=== PATIENT | female | born 1965 | race Asian ===

== ENCOUNTER 2017-11-12 09:26 | Emergency (ER) | payer OTHER ==
[~2017-11-12] VITALS: Ht 154.9 cm; Wt 90.3 kg
[2017-11-12 09:36] VITALS: BP 125/78; TEMP 97.8
[2017-11-12 10:21] LABS: PLATELET COUNT 261 K/uL (152-353)
[2017-11-12 10:27] LABS: POTASSIUM 3.5 mmol/L (3.6-5.2)
== END 2017-11-12 11:30 | disposition home or self-care (01) ==
LOC: ED 09:26
DX: N39.0 Urinary tract infection, site not specified (principal)
CPT/HCPCS: 36415; 80053; 81000; 85027; 87086; 87088; 96372; 99283; J1885

== ENCOUNTER 2017-12-04 06:34 | Emergency (ER) | payer OTHER ==
[~2017-12-04] VITALS: Ht 154.9 cm; Wt 90.3 kg
[2017-12-04 06:40] VITALS: TEMP 98
[2017-12-04] MEDS ORDERED: AMBIEN5 MG PO (06:59)
[2017-12-04] MEDS ORDERED: XANAX2 MG PO (06:59)
[2017-12-04] MEDS ORDERED: DULO30CA PO (07:00)
[2017-12-04] MEDS ORDERED: PERCOCET1 TA3 PO (07:00)
[2017-12-04 07:20] VITALS: BP 116/73
== END 2017-12-04 07:28 | disposition home or self-care (01) ==
LOC: ED 06:34
DX: G43.909 Migraine, unspecified, not intractable, without status migrainosus (principal)
CPT/HCPCS: 96372; 99283; J1020; J1885

== ENCOUNTER 2017-12-08 07:47 | Outpatient (CLI) | payer OTHER ==
[~2017-12-08 07:47] MED LIST: AMBIEN5 MG PO; DULO30CA PO; PERCOCET1 TA3 PO; XANAX2 MG PO
== END 2017-12-08 21:50 | disposition home or self-care (01) ==
LOC: RAD 07:47
DX: F32.9 Major depressive disorder, single episode, unspecified (principal); F31.9 Bipolar disorder, unspecified; M77.9 Enthesopathy, unspecified; M51.36 Other intervertebral disc degeneration, lumbar region; Z02.71 Encounter for disability determination

== ENCOUNTER 2018-02-17 13:49 | Outpatient (CLI) | payer OTHER | END 2018-02-17 19:17 | disposition home or self-care (01) | LOC: RAD 13:49 | DX: M54.2 Cervicalgia (principal); M25.512 Pain in left shoulder ==

== ENCOUNTER 2018-04-28 11:17 | Emergency (ER) | payer OTHER ==
[~2018-04-28] VITALS: Ht 154.9 cm; Wt 90.3 kg
[2018-04-28 11:20] VITALS: TEMP 98.3
[2018-04-28 12:18] LABS: PLATELET COUNT 240 K/uL (152-353)
[2018-04-28 12:21] LABS: POTASSIUM 3.9 mmol/L (3.6-5.2)
[2018-04-28 13:52] VITALS: BP 128/83
== END 2018-04-28 13:59 | disposition home or self-care (01) ==
LOC: ED 11:17
PROVIDERS: Emergency Medicine
DX: R42 Dizziness and giddiness (principal)
CPT/HCPCS: 36415; 80053; 81000; 85027; 93005; 96372; 99283

== ENCOUNTER 2018-05-02 17:14 | Emergency (ER) | payer OTHER ==
[~2018-05-02] VITALS: Ht 154.9 cm; Wt 90.3 kg
[2018-05-02 19:50] VITALS: BP 121/83; TEMP 97.8
== END 2018-05-02 19:50 | disposition home or self-care (01) ==
LOC: ED 17:14
PROC: 0HQFXZZ Repair Right Hand Skin, External Approach (ICD-10-PCS; principal; 2018-05-02)
DX: S61.210A Laceration without foreign body of right index finger without damage to nail, initial encounter (principal); W25.XXXA Contact with sharp glass, initial encounter
CPT/HCPCS: 90471; 90715; 99282

== ENCOUNTER 2018-05-17 15:19 | Outpatient (CLI) | payer OTHER ==
[2018-05-17 15:40] LABS: PLATELET COUNT 233 K/uL (152-353)
[2018-05-17 16:38] LABS: POTASSIUM 3.5 mmol/L (3.6-5.2)
== END 2018-05-17 20:44 | disposition home or self-care (01) ==
LOC: LABW 15:19
PROVIDERS: Physician Assistant
DX: F32.89 Other specified depressive episodes (principal); Z68.37 Body mass index [BMI] 37.0-37.9, adult; R63.5 Abnormal weight gain
CPT/HCPCS: 36415; 80053; 80061; 82306; 83036; 84439; 84443; 85027

== ENCOUNTER 2018-05-19 15:12 | Emergency (ER) | payer OTHER ==
[~2018-05-19] VITALS: Ht 154.9 cm; Wt 90.3 kg
[2018-05-19 15:47] VITALS: BP 126/88
== END 2018-05-19 15:56 | disposition home or self-care (01) ==
LOC: ED 15:12
DX: Z48.02 Encounter for removal of sutures (principal)

== ENCOUNTER 2018-06-05 09:59 | Outpatient (CLI) | payer OTHER | END 2018-06-05 19:25 | disposition home or self-care (01) | LOC: MAMMO 09:59 → RAD 10:30 → MAMMO 19:25 | DX: Z13.820 Encounter for screening for osteoporosis (principal); Z12.31 Encounter for screening mammogram for malignant neoplasm of breast ==

== ENCOUNTER 2018-08-03 14:19 | Outpatient (CLI) | payer OTHER | END 2018-08-03 20:14 | disposition home or self-care (01) | LOC: MRI 14:19 | DX: H51.0 Palsy (spasm) of conjugate gaze (principal) ==